=== PATIENT | male | born 1960 | race Caucasian/White ===

== ENCOUNTER 2017-09-21 11:15 | Emergency (ER) | payer BC ==
[2017-09-21 11:17] VITALS: BMI 30.8
[2017-09-21 11:18] VITALS: RESP 16; TEMP 97.9; O2SAT 98
[2017-09-21 12:25] LABS: HEMATOCRIT 42.5 % (35.0-51.0); MEAN CORPUSCULAR HEMOGLOBIN 33.4 pg (27.0-31.0); RED CELL DISTRIBUTION WIDTH 12.2 % (11.5-14.5); WHITE BLOOD COUNT 6.4 K/uL (4.8-10.8)
[2017-09-21 12:31] LABS: ALB/GLOB RATIO 1.5 (1.0-2.1); ALKALINE PHOSPHATASE 60 U/L (38-126); ALT/SGPT 79 U/L (21-72); AST/SGOT 45 U/L (17-59); BILIRUBIN,TOTAL 0.4 mg/dl (0.2-1.3); BLOOD UREA NITROGEN 17 mg/dl (9-20); CALCIUM 9.6 mg/dL (8.4-10.2); CARBON DIOXIDE 26 mmol/L (22-30); CHLORIDE 103 mmol/L (98-107); GFR AFRICAN-AMERICAN > 60; GLUCOSE,RANDOM 95 mg/dL (75-110); POTASSIUM 4.1 MMOL/L (3.6-5.0); SODIUM 142 mmol/l (132-148); TOTAL PROTEIN 7.8 G/DL (6.3-8.2)
[2017-09-21 12:32] LABS: PARTIAL THROMBOPLASTIN TIME 30.8 Seconds (25.6-37.1)
--- NOTE | 2017-09-21 13:49 | ED PDOC ---
HPI: General Adult Time Seen by Provider: 09/21/17 11:18 Chief Complaint (Nursing): ENT Problem Chief Complaint (Provider): Left sided nose bleed x 2 History Per: Patient History/Exam Limitations: no limitations Onset/Duration Of Symptoms: Intermittent Episodes Have you had recent travel within the past 21 days to any of the following countries: [place], [place], [place] or [place]?: No Current Symptoms Are (Timing): Gone Now Additional Complaint(s): Pt reports bleeding from the left nostril 3 dyas ago and again this morning. Pt states both times it resolved spontaneously. Pt reports taking aspirin for valve replacement and was concerned. Pt denies fever/chills. No headache. Past Medical History Reviewed: Historical Data, Nursing Documentation, Vital Signs Vital Signs: Last Vital Signs Temp 97.9 F 09/21/17 11:17 Pulse 68 09/21/17 11:17 Resp 16 09/21/17 11:17 BP 147/95 H 09/21/17 11:17 Pulse Ox 98 09/21/17 11:17 - Medical History PMH: Diverticulitis, HTN - Surgical History Surgical History: No Surg Hx Other surgeries: Aortic valve - Family History Family History: States: No Known Family Hx - Living Arrangements Living Arrangements: With Family - Social History Current smoker - smoking cessation education provided: No Alcohol: None Drugs: Denies - Home Medications Home Medications: Ambulatory Orders Medication Instructions Recorded Famotidine [Pepcid] 20 mg PO BID #28 tab 12/22/14 Ondansetron [Zofran Odt] 4 mg PO Q4H PRN #10 odt 12/22/14 - Allergies Allergies/Adverse Reactions: Allergies Allergy/AdvReac Type Severity Reaction Status Date / Time No Known Allergies Allergy Verified 12/22/14 12:15 Review of Systems ROS Statement: Except As Marked, All Systems Reviewed And Found Negative Constitutional: Negative for: Fever, Chills ENT: Positive for: Other (Left nose bleed ) Physical Exam - Reviewed Nursing Documentation Reviewed: Yes Vital Signs Reviewed: Yes - Physical Exam Appears: Positive for: Well, Non-toxic, No Acute Distress Head Exam: Positive for: ATRAUMATIC, NORMAL INSPECTION, NORMOCEPHALIC Skin: Positive for: Normal Color, Warm, DRY Eye Exam: Positive for: Normal appearance ENT: Negative for: Normal ENT Inspection (Dried blood seen in left nostril, no active bleeding ) Neck: Positive for: Normal, Painless ROM Cardiovascular/Chest: Positive for: Regular Rate, Rhythm Respiratory: Positive for: CNT, Normal Breath Sounds Gastrointestinal/Abdominal: Positive for: Normal Exam, Bowel Sounds, Soft Back: Positive for: Normal Inspection Extremity: Positive for: Normal ROM Neurologic/Psych: Positive for: Alert, Oriented - Laboratory Results Result Diagrams: 09/21/17 12:10 09/21/17 12:10 - ECG O2 Sat by Pulse Oximetry: 98 Disposition - Clinical Impression Clinical Impression: Epistaxis - Patient ED Disposition Is Patient to be Admitted: No Counseled Patient/Family Regarding: Diagnosis, Need For Followup - Disposition Referrals: Jensen Fiore MD [Staff Provider] - [facility] [Outside] Disposition: Routine/Home Disposition Time: 13:49 Condition: STABLE Additional Instructions: Please follow-up with ENT. Instructions: Nosebleed (ED) Forms: [facility] ([place]ian), [facility] ED School/Work Excuse
[2017-09-21 14:24] VITALS: BP 107/83; PULSE 71
== END 2017-09-21 13:54 | disposition home or self-care (01) ==
LOC: H.ER 11:15
DX: R04.0 Epistaxis (principal); I10 Essential (primary) hypertension; Z95.2 Presence of prosthetic heart valve